=== PATIENT | male | born 1950 | race American Indian/Alaskan Native ===

== ENCOUNTER 2016-07-03 11:34 | Day surgery (SDC) | payer MEDICARE, MEDICAID ==
[2016-04-27 07:19] VITALS: BMI 24.4
[2016-07-03 12:45] VITALS: RESP 18
[2016-07-03] MEDS ORDERED: Lactated Ringer's 1,000 ML IV ONE (14:17)
[2016-07-03] MEDS ORDERED: Propofol 10 mg/ml Inj (20 ML) ONE (14:31)
[2016-07-03] MEDS ORDERED: Oxycodone/Acetaminophen 5/325 mg Tab PO PRN (14:38)
[2016-07-03] MEDS ORDERED: Lactated Ringer's 1,000 ML IV SCH (15:00)
[2016-07-03 15:40] VITALS: TEMP 97.6; O2SAT 100
[2016-07-03 15:44] VITALS: BP 120/78; PULSE 70
--- NOTE | 2016-08-17 09:14 | OP ---
PROCEDURE DATE: 07/03/2016 PREOPERATIVE DIAGNOSES: Urinary retention, voiding dysfunction, history of prostate cancer, currentl y no evidence of disease. COMPLICATIONS: There were none. PROCEDURE: Removal of a cystostomy tube and insertion of a cystostomy tube. SURGEON: Aaron Duran MD This is a very pleasant gentleman who I have known well for quite some time. Back in 07/2008, he underwent a radical retropubic prostatectomy. He has been JOSE RAMON from a prostate can cer standpoint. That was done for prostate, clinically localized prostate cancer. He has been JOSE RAMON s sobeida that point. He has urinary retention subsequent to that, secondary to scar tissue. We changed his cystoscopy. W lucio tried to do it as an outpatient basis, but sometimes patient runs into trouble and needs it done as an inpatient. That is what he is here for today. PROCEDURE ITSELF: We have discussed options. We tried doing it with minimal anesthesia, but the pat ietoyin has many complaints of pain and discomfort. After discussing options, he is here now. The patient was brought to the operating room with anesthesia. Sedation provided by the anesthesiologist. Under sterile technique, we removed the old catheter. We inserted a new catheter without difficulty. We irrigated. We confirmed our positioning. The patient tolerated the procedure without complication. Aaron Duran MD cc: [id number] TT: 08/17/2016 08:55:50 en
== END 2016-07-03 16:32 | disposition home or self-care (01) ==
LOC: C.SDS 11:34
PROVIDERS: ATTEND Urology
DX: R33.9 Retention of urine, unspecified (principal); Z85.46 Personal history of malignant neoplasm of prostate
CPT/HCPCS: 51705; 82948; C2627; J7120

== ENCOUNTER 2016-08-23 12:28 | Day surgery (SDC) | payer MEDICARE, MEDICAID ==
[2016-08-23 12:50] VITALS: BMI 16.7
[2016-08-23 12:54] VITALS: RESP 20; TEMP 97.6; O2SAT 97
[2016-08-23] MEDS ORDERED: Lactated Ringer's 500 ML IV ONE (14:35)
[2016-08-23] MEDS: cefTRIAXone IV 1 gm in Dextros 50 ML IVPB ONE ×2 (14:40→14:43)
[2016-08-23] MEDS ORDERED: Propofol 10 mg/ml Inj (20 ML) ONE (14:40)
[2016-08-23] MEDS ORDERED: Oxycodone/Acetaminophen 5/325 mg Tab PO PRN (15:49)
--- NOTE | 2016-08-23 16:01 | HP ---
REASON FOR ADMISSION: To change a suprapubic catheter. Lately, he has been having a lot of difficul ty where it stops working, faulty catheters and after discussing options with the patient, he is here today for a cystoscope and removal of a Sommer catheter insertion ____. PAST MEDICAL AND SURGICAL HISTORY: As listed on the chart. He has history of prostate cancer, patie nt of Dr. Jung's, he is in a intermediate. SOCIAL HISTORY: He lives in a intermediate. REVIEW OF SYSTEMS: Listed above. As mentioned, he has a feeding tube. There has really been no oth er changes over time. MEDICATIONS: See the chart. PHYSICAL EXAMINATION: GENERAL: He is a well-nourished male, in no apparent distress. VITAL SIGNS: Within normal limits. HEENT: As noted, he is blind. ABDOMEN: His G-tube is in place, feeding tube is in place. Cystostomy tube in good location. DIAGNOSES: Prostate cancer, currently no evidence of disease. In summary, a very pleasant gentleman. He is a 65 years old. He has history of prostate cancer, cur rently no evidence of disease. We have discussed options with the patient. He is here today for a cystoscopy and a change of a cath eter. Of late, we are having some trouble with the catheter. He is here for cystoscopy and change of catheter. Further plans will follow. Aaron Duran MD cc: [id number] TT: 08/23/2016 16:01:20 sn
[2016-08-23 17:04] VITALS: BP 119/63; PULSE 69
--- NOTE | 2016-08-24 06:57 | OP ---
PROCEDURE DATE: 08/23/2016 PREOPERATIVE DIAGNOSES: Urinary retention, voiding dysfunction and nonfunctioning catheter. POSTOPERATIVE DIAGNOSES: Urinary retention, voiding dysfunction and nonfunctioning catheter, bladder debris, but no direct stones. COMPLICATIONS: There were no complications. PROCEDURE: Removal of cystostomy tube, cystoscopy and insertion of a cystostomy tube. FINDINGS: The cystoscopic findings are as follows: Normal bladder mucosa. There is a lot of debris floating around but I do not see any bladder lesion ____. The ____ is within normal limits of havin g a catheter in place. No specific abnormalities. There is bladder debris in the bladder. PROCEDURE ITSELF: After obtaining informed consent, ____, routine monitors placed, timeouts were ca lled to confirm the patient and positioning. The patient needs bladder anesthesia. Sometimes I am a ble to ____, sometimes I am not. He asked that this time we do it in the hospital. So, he is here f or the above procedure. We removed the old catheter under sterile technique, we inserted a cystoscop e, we did under direct vision with the camera so the room is able to see. I inspected carefully around the bladder. I can orient myself within the bladder mucosa by the air b ubbles. I do not see any direct lesions, just a lot of redness, all within normal limits and there i s a lot of debris. We reinserted a new cystostomy tube. I irrigated ____ well. We used a 20 Slovenian ____ a little bit bigger. I am planning actually to dilate him up to 24. The patient tolerated the procedure well without complication. My plan is just to irrigate it. I do not see anything of patricia r significance at this point, so we will need to evaluate further. Aaron Duran MD cc: 429 TT: 08/23/2016 16:11:34 sn
== END 2016-08-23 17:07 | disposition home or self-care (01) ==
LOC: C.SDS 12:28
PROVIDERS: ATTEND Urology
DX: N99.512 Cystostomy malfunction (principal); R33.8 Other retention of urine; N32.89 Other specified disorders of bladder; Z85.46 Personal history of malignant neoplasm of prostate
CPT/HCPCS: 51705; 82948; J0696; J7120

== ENCOUNTER 2016-09-20 11:30 | Day surgery (SDC) | payer MEDICARE, MEDICAID ==
[2016-09-20] MEDS ORDERED: Midazolam 2 MG/2 ML VIAL ONE (12:56)
--- NOTE | 2016-09-25 18:06 | OP ---
PROCEDURE DATE: 09/20/2016 PREOPERATIVE DIAGNOSES: Urinary retention and urethral stricture disease, bladder neck contracture, and history of prostate cancer. POSTOPERATIVE DIAGNOSES: Urinary retention and urethral stricture disease, bladder neck contracture, and history of prostate cancer. SURGEON: Aaron Duran MD. Change of cystostomy tube. COMPLICATIONS: There were no complications. BLOOD LOSS: Less than 10 mL. INDICATIONS: See history and physical for the details. A very pleasant gentleman here for the above procedure. PROCEDURE: After obtaining informed consent, the patient placed on the table, routine monitors place d, timeouts were called. We confirmed the patient and positioning. Once the patient was sedated, we removed the old catheter and inserted a new one without difficulty. The patient tolerated this without any complication. Aaron Duran MD cc: 429 TT: 09/25/2016 18:05:28 jn
--- NOTE | 2016-09-25 20:18 | HP ---
REASON FOR ADMISSION: retention. HISTORY OF PRESENT ILLNESS: This is a very pleasant gentleman I know quite well. He underwent a rad ical retropubic prostatectomy on 08/02/2008. At that time, we cured him of his prostate cancer, is clinically localized, never had a recurrence. He currently has voiding dysfunction. He has a suprapubic catheter. A lot has changed over time wit h the patient. He currently has a feeding tube and he is also blind. He has had no recurrence of disease. Today, he is to change the cystostomy tube. We tried to change it in the office, but sometimes he complains that it hurts too much. He has requested that we broug ht him here today. PAST MEDICAL AND SURGICAL HISTORY: No other changes. SOCIAL H ISTORY: The patient lives in a long term. The patient of Dr. Holley. 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 MEDICATIONS: See the chart. PHYSICAL EXAMINATION: GENERAL: Well-nourished male in no apparent distress. VITAL SIGNS: Within normal limits. ABDOMEN: Overall soft, nontender. Suprapubic site is clean and dry. GENITOURINARY: Normal phallus without discharge. RECTAL: Delayed at this point, but previously no empty prostatic fossa. DIAGNOSES: Urinary retention, voiding dysfunction. We discussed options with the patient, risks, be nefits and alternatives, the plan is as follows. We are going to bring the patient to the OR, antibi otic prophylaxis and bring him with anesthesia sedation and do a cystostomy tube change. Aaron Duran MD cc: 429 TT: 09/25/2016 20:17:53 [email or web address]
== END 2016-09-20 15:00 | disposition home or self-care (01) ==
LOC: C.SDS 11:30
PROVIDERS: ATTEND Urology
DX: Z43.5 Encounter for attention to cystostomy (principal); R33.9 Retention of urine, unspecified; N32.0 Bladder-neck obstruction; Z85.46 Personal history of malignant neoplasm of prostate

== ENCOUNTER 2016-12-04 12:52 | Day surgery (SDC) | payer MEDICARE, MEDICAID ==
[2016-12-04] MEDS ORDERED: Propofol 10 mg/ml Inj (20 ML) ONE (14:49)
[2016-12-04] MEDS ORDERED: Lidocaine Hydrochloride 5 ML INJ ONE (14:57)
[2016-12-04] MEDS ORDERED: cefTRIAXone IV 1 gm in Dextros 0 ML IVPB ONE (15:01)
[2016-12-04] MEDS ORDERED: Oxycodone/Acetaminophen 5/325 mg Tab PO PRN (15:47)
[2016-12-04 18:18] VITALS: BP 118/68; PULSE 68; RESP 20; TEMP 97.7; O2SAT 99
--- NOTE | 2016-12-04 23:11 | OP ---
PROCEDURE DATE: 12/04/2016 PREOPERATIVE DIAGNOSES: Urinary retention, voiding dysfunction, history of prostate cancer, and multiple medical issues, and no evidence of recurrence of prostate cancer. POSTOPERATIVE DIAGNOSES: Urinary retention, voiding dysfunction, history of prostate cancer, and multiple medical issues, and no evidence of recurrence of prostate cancer. PROCEDURE: Removal and insertion of cystostomy tube. SURGEON: ESTIMATED BLOOD LOSS: Less than 10 mL. COMPLICATIONS: None. INDICATIONS: See history and physical. The patient is a very pleasant gentleman, who does not tolerate while in the office, and he requests pain medicine. We brought him in for the above procedure with some anesthesia. DESCRIPTION OF PROCEDURE: The patient was placed on the table. Routine monitors were placed. Time-out was called to identify the correct patient and positioning. Actually, we did this on the stretcher with monitoring. Anesthesia provided, time-out was called to identify the patient. We removed the old catheter and inserted new one. The patient had been given antibiotic prophylaxis. I irrigated the catheter very carefully to make sure it is irrigating well, it has been placed properly, etc. We did all the measurements to length, etc. The patient tolerated without complications. Aaron Duran MD
--- NOTE | 2016-12-05 09:02 | HP ---
UROLOGY ADMISSION HISTORY AND PHYSICAL REASON FOR ADMISSION: Change of a catheter. HISTORY OF PRESENT ILLNESS: Mr. Srivastava is a very pleasant gentleman who does not tolerate a suprapubic catheter without anesthesia. He is here now for a change. I discussed with the patient risks of anesthesia, risks, benefits, treatment, and alternatives and after discussing that at length with the patient, we are planning for the change of cystotomy tube. PAST MEDICAL AND SURGICAL HISTORY: The patient of Dr. Jung. No history of SC or CVA. He has a history of prostate cancer and no recurrence. He is here today for the change. PHYSICAL EXAMINATION: GENERAL: Well-nourished male, in no apparent distress. VITAL SIGNS: Within normal limits. LUNGS: Clear. HEART: S1 and S2. ABDOMEN: Soft and nontender. *------* appreciated. : Normal phallus. His feeing tube is in good location. His cystotomy tube site looks clean and dry. DIAGNOSES: Urinary retention, voiding dysfunction, prostate cancer. PLAN: At this point, we bring the patient to the hospital. We will provide anesthesia. *------* office, but when he goes to the office, he sometimes *------* me, but most often says no. So, at this point, we will bring him into the hospital. We are going to do a suprapubic catheter change and then further plans will follow. We will do it with anesthesia. Risks and benefits were discussed with the patient at length. We will plan to see. Aaron Duran MD
== END 2016-12-04 18:18 | disposition home or self-care (01) ==
LOC: C.SDS 12:52
PROVIDERS: ATTEND Urology
DX: C80.1 Malignant (primary) neoplasm, unspecified (principal); R33.9 Retention of urine, unspecified

== ENCOUNTER 2017-01-14 13:58 | Day surgery (SDC) | payer MEDICARE, MEDICAID ==
[2017-01-10 08:46] VITALS: BMI 26.2
[2017-01-14] MEDS ORDERED: Midazolam 2 MG/2 ML VIAL ONE (16:27)
[2017-01-14] MEDS ORDERED: Lactated Ringer's 1,000 ML IV ONE (16:39)
[2017-01-14] MEDS ORDERED: Oxycodone/Acetaminophen 5/325 mg Tab PO PRN (17:06)
[2017-01-14 17:45] VITALS: TEMP 98
[2017-01-14 17:48] VITALS: PULSE 73; O2SAT 99
[2017-01-14 17:56] VITALS: BP 106/72; RESP 18
--- NOTE | 2017-02-11 06:51 | OP ---
PROCEDURE DATE: NAME OF THE PROCEDURE: Removal of an old cystostomy tube insertion. PREOPERATIVE DIAGNOSES: Urinary retention, voiding dysfunction, history of prostate cancer, currently JOSE RAMON. POSTOPERATIVE DIAGNOSES: Urinary retention, voiding dysfunction, history of prostate cancer, currently JOSE RAMON.. PROCEDURE: Removal and insertion of a cystostomy tube suprapubic catheter. SURGEON: Aaron Duran MD ESTIMATED BLOOD LOSS: Less than 10 mL. COMPLICATIONS: No complications. INDICATIONS: See history and physical for further details. This is a very pleasant gentleman here for procedure. DESCRIPTION OF PROCEDURE: We obtained an informed consent. The patient placed on the table. Routine monitors were placed. Time-out was called. We confirmed the patient positioning. After doing so, we then subsequently removed the old catheter and inserted a new catheter without difficulty via the cystostomy tube. The patient tolerated the procedure well without complications. Aaron Duran MD
--- NOTE | 2017-02-11 07:04 | HP ---
UROLOGY ADMISSION HISTORY AND PHYSICAL REASON FOR ADMISSION: Change of catheter. HISTORY OF PRESENT ILLNESS: Mr. Srivastava is a very pleasant gentleman who has a history of prostate cancer, currently JOSE RAMON, has urinary retention, voiding dysfunction, and we are here to change the cystostomy tube. We are not able to remove off the tube. We have tried very often, but he is not okay with that. PAST MEDICAL HISTORY: No other changes. PAST SURGICAL HISTORY: No other changes. REVIEW OF SYSTEMS: As listed above. MEDICATIONS: See the chart. PHYSICAL EXAMINATION: GENERAL: A well-nourished male in no apparent distress. VITAL SIGNS: Within normal limits . LUNGS: Clear. ABDOMEN: Soft. The G tube is in good location. The cystoscopy tube is in good location. : Normal phallus without discharge. DIAGNOSES: Urinary retention and voiding dysfunction. PLAN: We are going to change the cystoscopy tube, and then we will give the patient anesthesia for this because he is not able to tolerate it without that. Again, I am going to encourage the patient about the risks, benefits, and treatment alternatives and we are going to try do it in the office . Aaron Duran MD
== END 2017-01-14 18:30 | disposition home or self-care (01) ==
LOC: C.SDS 13:58
PROVIDERS: ATTEND Urology
DX: R33.9 Retention of urine, unspecified (principal)
CPT/HCPCS: 51705; 82948; J7120

== ENCOUNTER 2017-02-18 13:12 | Day surgery (SDC) | payer MEDICARE, MEDICAID ==
[2017-02-12 08:36] VITALS: BMI 16.6
[2017-02-18 13:24] VITALS: RESP 18; O2SAT 100
[2017-02-18] MEDS ORDERED: Oxycodone/Acetaminophen 5/325 mg Tab PO PRN (14:38)
[2017-02-18] MEDS ORDERED: Propofol 10 mg/ml Inj (20 ML) ONE (14:45)
[2017-02-18] MEDS ORDERED: Sodium Chloride 0.9% 500 ML IV ONE (14:50)
[2017-02-18 15:49] VITALS: PULSE 60; TEMP 97
[2017-02-18 16:37] VITALS: BP 125/69
--- NOTE | 2017-02-25 09:49 | OP ---
UROLOGY OPERATIVE REPORT PROCEDURE DATE: 02/18/2017 PREOPERATIVE DIAGNOSES: Urinary retention, voiding dysfunction, history of prostate cancer, currently no evidence of disease. POSTOPERATIVE DIAGNOSES: Urinary retention, voiding dysfunction, history of prostate cancer, currently no evidence of disease. PROCEDURE: Removal of cystostomy tube, insertion of cystostomy tube. COMPLICATIONS: There were no complications. INDICATIONS: See history and physical for further details. This is a very pleasant gentleman who just cannot tolerate this while in the office. I keep trying periodically. He will allow me, but on a routine basis, he does not. I have discussed the options with the patient and he is now here for the above procedure. DESCRIPTION OF PROCEDURE: After obtaining informed consent, the patient was placed on the table. Routine monitors were placed. Time-out was called. We confirmed the patient positioning, etc. Anesthesia and sedation provided. We prepped the area in sterile fashion. We removed the old catheter and in sterile fashion we inserted a new cystostomy tube. We irrigated to make sure it is in place. Overall, the patient tolerated the procedure well without complication. Aaron Duran MD
== END 2017-02-18 17:32 | disposition home or self-care (01) ==
LOC: C.SDS 13:12
PROVIDERS: ATTEND Urology
DX: R33.9 Retention of urine, unspecified (principal)
CPT/HCPCS: 51705; 82948; J7040

== ENCOUNTER 2017-04-02 11:13 | Day surgery (SDC) | payer MEDICARE, MEDICAID ==
[2017-02-12 08:36] VITALS: BMI 16.6
[2017-04-02] MEDS ORDERED: Lactated Ringer's 500 ML IV ONE (16:54)
[2017-04-02] MEDS ORDERED: Oxycodone/Acetaminophen 5/325 mg Tab PO PRN (17:03)
[2017-04-02] MEDS ORDERED: HYDROmorphone 0.5 mg/0.5 ml ISec IVP PRN (17:18)
[2017-04-02 18:16] VITALS: BP 110/71; PULSE 87; RESP 17; TEMP 97.4; O2SAT 95
--- NOTE | 2017-04-30 07:46 | OP ---
PROCEDURE DATE: 04/02/2017 PREOPERATIVE DIAGNOSES: Urinary retention, voiding dysfunction, prostate cancer. POSTOPERATIVE DIAGNOSES: Urinary retention, voiding dysfunction, prostate cancer. PROCEDURE: Removal and insertion of cystotomy tube. COMPLICATIONS: There were no complications. INDICATIONS: See the history and physical for further details. A very pleasant gentleman, who I know quite well, on 08/02/2008 he underwent a radical retropubic prostatectomy. He has been JOSE RAMON since then. No evidence of cancer. We have monitored him. Since then, he has had multiple medical changes. He currently has an indwelling cystostomy tube; he also has a feeding tube. He is also legally blind. From urology standpoint, he reports that he is not able to change the catheter in the office although sometimes we are able to when he had emergencies, but for the most part we had been changing it in the hospital and for now. ESTIMATED BLOOD LOSS: 10 mL. DRAIN: Suprapubic tube. DESCRIPTION OF THE PROCEDURE: After obtaining informed consent, the patient was placed on the table. Routine monitor was placed. Time-out was called to confirm the patient and positioning, etc. Under the sterile technique, we removed the old catheter and inserted a new catheter. The patient tolerated the procedure well without complication. We also irrigated the catheter; the catheter drains well. Aaron Duran MD
== END 2017-04-02 19:00 | disposition home or self-care (01) ==
LOC: C.SDS 11:13
PROVIDERS: ATTEND Urology
DX: R33.9 Retention of urine, unspecified (principal); C61 Malignant neoplasm of prostate
CPT/HCPCS: 51102; 82948; J7120

== ENCOUNTER 2017-05-27 13:33 | Day surgery (SDC) | payer MEDICARE, MEDICAID ==
[2017-02-12 08:36] VITALS: BMI 16.6
[2017-05-27 14:23] VITALS: BP 102/60; PULSE 69; RESP 18; TEMP 97.9; O2SAT 98
[2017-05-27] MEDS ORDERED: Oxycodone/Acetaminophen 5/325 mg Tab PO PRN (14:38)
[2017-05-27] MEDS ORDERED: Oxycodone/Acetaminophen 5/325 mg Tab ONE (14:44)
== END 2017-05-27 18:19 ==
LOC: C.SDS 13:33
PROVIDERS: ATTEND Urology
DX: R33.9 Retention of urine, unspecified (principal); Z53.9 Procedure and treatment not carried out, unspecified reason

== ENCOUNTER 2017-08-12 07:52 | Day surgery (SDC) | payer MEDICARE ==
[2017-08-12] MEDS ORDERED: Propofol 10 mg/ml Inj (20 ML) ONE (07:53)
[2017-08-12] MEDS ORDERED: Lidocaine Hydrochloride 5 ML INJ ONE (07:55)
[2017-08-12 08:29] VITALS: BMI 16.4
[2017-08-12] MEDS ORDERED: Lactated Ringer's 1,000 ML IV ONE (09:05)
[2017-08-12 09:47] VITALS: O2SAT 100
[2017-08-12 10:38] VITALS: RESP 18
[2017-08-12 11:04] VITALS: BP 127/72; PULSE 84; TEMP 97.5
== END 2017-08-12 10:41 ==
LOC: C.ENDO 07:52
PROVIDERS: ATTEND Internal Medicine
DX: R63.4 Abnormal weight loss (principal); R10.84 Generalized abdominal pain; Z93.1 Gastrostomy status; K59.09 Other constipation; K64.8 Other hemorrhoids; K29.70 Gastritis, unspecified, without bleeding
CPT/HCPCS: 43239; 45378; 82948; 88305; 88313; 88342; J2704; J7120

== ENCOUNTER 2017-09-12 09:13 | Day surgery (SDC) | payer MEDICARE, MEDICAID ==
[2017-09-12] MEDS ORDERED: HYDROmorphone 0.5 mg/0.5 ml ISec IVP PRN (11:20)
[2017-09-12] MEDS ORDERED: ceFAZolin 1 gm in NS 1 GM/100 ML BAG IVPB ONE (13:25)
[2017-09-12] MEDS ORDERED: Oxycodone/Acetaminophen 5/325 mg Tab PO PRN (13:25)
[2017-09-12 16:49] VITALS: BP 111/60; PULSE 72; RESP 18; TEMP 97; O2SAT 95
--- NOTE | 2017-09-13 00:53 | HP ---
REASON FOR ADMISSION: For changing cath. HISTORY OF PRESENT ILLNESS: A very pleasant gentleman who I know quite well. On 08/02/2008, he underwent radical retropubic prostatectomy. He is currently JOSE RAMON from prostate cancer, that is done for prostate cancer. Meanwhile, though, he has voiding dysfunction and he has suprapubic catheter. He is also blind. He has his feeding tube as well as a gastrostomy tube. He is here just for the change. We tried changing in the office sometimes, but it has been just too difficult, he has so much pain and discomfort. The patient is . PAST MEDICAL HISTORY: No other changes. PAST SURGICAL HISTORY: No other changes. REVIEW OF SYSTEMS: As above. Of an interesting note, the patient states they do not give him Percocet anymore for pain. He asked me to investigate why. So, I am going to send him now back to retirement. His medical doctor his Dr. Zeny Jung. PHYSICAL EXAMINATION: GENERAL: A well-nourished thin male, in no apparent distress. He looks the same as usual. VITAL SIGNS: Within normal limits including the chart. LUNGS: Clear. HEART: Normal S1 and S2. ABDOMEN: Overall soft. The cystoscopy tube is in good location. Gastrostomy tube in good location. RECTAL: Deferred. LABORATORY DATA: Pending. DIAGNOSES: Urinary retention. Voiding dysfunction. History of prostate cancer, currently neuroendocrine differentiation. PLAN: As follows: 1. Periodically, recheck a PSA. 2. We are changing the cystostomy tube. We discussed options, locations, etc., he is here now for further plans. 3. The plan is as follows: The patient for a change of cystoscopy tube . Aaron Duran MD
--- NOTE | 2017-09-13 07:54 | OP ---
PROCEDURE DATE: 09/12/2017 PREOPERATIVE DIAGNOSES: Urinary retention, voiding dysfunction, history of prostate cancer and no evidence of disease currently. POSTOPERATIVE DIAGNOSES: Urinary retention, voiding dysfunction, history of prostate cancer and no evidence of disease currently. PROCEDURE: Removal and insertion of a cystostomy tube. SURGEON: Aaron Duran MD TYPE OF ANESTHESIA: Sedation. ESTIMATED BLOOD LOSS: Less than 10 mL. COMPLICATIONS: None. At the termination of the procedure, the patient has a new cystostomy tube, it is irrigating well. INDICATIONS: See the history and physical for further details. This is a very pleasant gentleman who we have tried doing it in the office; he always complains "it hurts too much, it hurts too much." After discussing various options over time, we have been changing it reliably, and then when we do that this way, the patient does not usually run into any catheter difficulties. DESCRIPTION OF PROCEDURE: After obtaining informed consent, the patient was placed on the table, routine monitors were placed, time-out was called to confirm the patient and positioning. We removed the old catheter and we actually scrubbed the abdomen. It consisted of lot of encrustations around the catheter. We scrubbed the abdomen with the Hibiclens and then we sprayed extra Betadine. With sterile incision kit, we inserted new Sommer catheter via the cystostomy tube and irrigated it copiously. The patient tolerated the procedure well without complications. Aaron Duran MD
== END 2017-09-12 16:45 | disposition home or self-care (01) ==
LOC: C.SDS 09:13
PROVIDERS: ATTEND Urology
DX: Z46.6 Encounter for fitting and adjustment of urinary device (principal); R33.9 Retention of urine, unspecified; R31.29 Other microscopic hematuria; Z85.46 Personal history of malignant neoplasm of prostate; Z93.1 Gastrostomy status

== ENCOUNTER 2018-01-16 10:55 | Day surgery (SDC) | payer MEDICARE, MEDICAID ==
[2017-11-11 06:55] VITALS: BMI 16.4
[2018-01-16] MEDS ORDERED: cefTRIAXone 1 gm 1 GM/100 ML BAG IVPB ONE (12:56)
[2018-01-16] MEDS ORDERED: Oxycodone/Acetaminophen 5/325 mg Tab PO PRN (13:08)
[2018-01-16] MEDS ORDERED: Propofol 10 mg/ml Inj (20 ML) ONE (13:22)
[2018-01-16] MEDS ORDERED: Lactated Ringer's 1,000 ML IV SCH (13:45)
[2018-01-16 14:30] VITALS: O2SAT 100
[2018-01-16 15:12] VITALS: RESP 16; TEMP 97.5
[2018-01-16 16:08] VITALS: BP 123/70; PULSE 98
--- NOTE | 2018-01-17 06:21 | OP ---
PROCEDURE DATE: 01/16/2018 PREOPERATIVE DIAGNOSES: Urinary retention, voiding dysfunction, bladder stones, bladder debris, dysfunctional catheters and prostate cancer, history of currently no evidence of cancer. POSTOPERATIVE DIAGNOSES: Urinary retention, voiding dysfunction, bladder stones, bladder debris, dysfunctional catheters and prostate cancer, history of currently no evidence of cancer. PROCEDURE: Removal and insertion of cystoscopy tube with irrigation of debris. COMPLICATIONS: There were no complications. INDICATIONS: See the history and physical for further details. A very pleasant gentleman here for the above procedure. We discussed options. DESCRIPTION OF PROCEDURE: After obtaining informed consent, the patient was placed on the table. Routine monitors were placed. Time-out was called to confirm the patient and positioning. Antibiotic prophylaxis was used. We removed the old catheter. Without too much difficulty we inserted new one. If you look closely at the catheter there is a like debris. We irrigated the catheter copiously, it irrigates well. We actually used a 20 Indonesian to make it a little bit bigger than the previous 18, we took out an 18 and put in 20 without difficulty it went in. The patient tolerated the procedure without complication. Aaron Duran MD
--- NOTE | 2018-01-17 06:39 | HP ---
REASON FOR ADMISSION: Changing the suprapubic catheter. HISTORY OF PRESENT ILLNESS: A very pleasant patient on 08/02/2008 underwent radical retropubic prostatectomy for prostate cancer. He has not been any recent stent. From urology standpoint, he also has urinary retention now. With the voiding dysfunction, he is blind. He also has a feeding tube, so we have been managing with his suprapubic catheter and we are changing that. Of note, see all the previously dictated notes in this regard. The patient complains of we do it in the office. Sometimes, we are able to get away in the office and in the hospital, sometimes he states now. At this point, we had trouble. Last time, he had some stones built up and we wanted to do a cystoscopy litholapexy; however, he does not have medical clearance. I have to discuss the various options with the patient where here today we are going to just change the cystostomy tube. PAST MEDICAL HISTORY: As listed in the chart. PAST SURGICAL HISTORY: As listed in the chart. As mentioned above, no other change. The patient . SOCIAL HISTORY: Socially, he lives in a [facility]. His brother actually used to work here, [employer]. Other than unremarkable social history. REVIEW OF SYSTEMS: As above. No weight loss, chest pain or shortness of breath. PHYSICAL EXAMINATION: GENERAL: A well-developed, well-nourished male, in no apparent distress. VITAL SIGNS: Within normal limits. HEENT: Sclerae nonicteric and not injected. No cervical or axillary adenopathy. LUNGS: Clear. HEART: Normal S1, S2. ABDOMEN: Overall soft, nontender. No flank masses appreciated. PELVIC: Suprapubic catheter is in place of working. DIAGNOSES: 1. Prostate cancer, currently NAD. 2. Voiding dysfunction. 3. Urinary retention. 4. Bladder stones. PLAN: As follows. Today, we are going to just change the cystostomy tube, which we could do on the middle of anesthesia and then if an when he can get medical clearance, we will plan for that too as well. We will discuss further plan back after. Plan as follows. Antibiotic prophylaxis. Change of the catheter. Aaron Duran MD [facility] # [id number]
== END 2018-01-16 16:00 | disposition home or self-care (01) ==
LOC: C.SDS 10:55
PROVIDERS: ATTEND Urology
DX: R33.9 Retention of urine, unspecified (principal); C61 Malignant neoplasm of prostate
CPT/HCPCS: 51705; 82948; J0696

== ENCOUNTER 2018-04-22 12:11 | Day surgery (SDC) | payer MEDICARE, MEDICAID ==
[2018-03-13 11:59] VITALS: BMI 16.7
[2018-04-22] MEDS ORDERED: Propofol 10 mg/ml Inj (20 ML) ONE (14:33)
[2018-04-22] MEDS ORDERED: cefTRIAXone 1 gm 1 GM/100 ML BAG IVPB ONE (14:37)
[2018-04-22] MEDS ORDERED: Oxycodone/Acetaminophen 5/325 mg Tab PO PRN (14:46)
[2018-04-22] MEDS ORDERED: Lidocaine 2% Jelly (Uro-Jet) ONE (14:53)
[2018-04-22] MEDS ORDERED: Dextrose 50% SYRINGE Inj (50 ml) ONE (15:06)
[2018-04-22] MEDS ORDERED: HYDROmorphone 0.5 mg/0.5 ml ISec IVP PRN (15:20)
[2018-04-22] MEDS ORDERED: HYDROmorphone 0.5 mg/0.5 ml ISec ONE (15:33)
[2018-04-22 18:19] VITALS: BP 120/78; PULSE 63; RESP 20; TEMP 97.8; O2SAT 98
--- NOTE | 2018-04-23 01:28 | OP ---
PROCEDURE DATE: 04/22/2018 UROLOGY OPERATIVE NOTE PREOPERATIVE DIAGNOSES: Bladder stones, urinary retention, voiding dysfunction, history of prostate cancer, currently no evidence of disease. POSTOPERATIVE DIAGNOSES: Bladder stones, urinary retention, voiding dysfunction, history of prostate cancer, currently no evidence of disease, and there are no stones, but there is bladder debris. PROCEDURES: Cystoscopy, irrigation of debris, and insertion of a cystostomy tube. SURGEON: Aaron Duran MD COMPLICATIONS: There were no complications. FINDINGS: The bladder mucosa has normal redness. No lesions. There is lot of debris noted. We irrigated it out nicely. We inserted a new Sommer catheter. There were no complications. DESCRIPTION OF PROCEDURE: After obtaining informed consent, the patient was placed on the table. Routine monitors were placed on the table. Time-out was called. We removed the old Sommer catheter without difficulty. The patient was prepped in a sterile fashion. We introduced a 22 cystoscope via the cystostomy tube, inspected carefully. I took multiple pictures and left in the chart. There is debris, but there are no stones. It looks like even yellow crystals, but there are definitely no stones . We irrigated those out. The urine was clear. We inserted a new catheter, irrigated this copiously as well. Dry sterile dressing was applied. The patient tolerated the procedure without complications. NAME OF THE PROCEDURE: Removal of the cystostomy tube, insertion of a cystostomy tube and cystoscopy and irrigation of debris. Aaron Duran MD
--- NOTE | 2018-04-23 02:18 | HP ---
UROLOGY ADMISSION HISTORY AND PHYSICAL REASON FOR ADMISSION: Change of catheter. HISTORY OF PRESENT ILLNESS: Mr. Srivastava is a very pleasant gentleman who has a history of prostate cancer on 08/02/2017, underwent a radical prostatectomy. Since then he has been JOSE RAMON, no evidence of disease or recurrence of prostate cancer; however, he does have voiding dysfunction. At this point, he is blind. He has a feeding tube in. He has a cystostomy tube and we just changed this periodically. This was an easier management plan for the patient. Recently, he was found to have "bladder stones." He is here today for cysto and cystolitholapaxy. See the below plan. PAST MEDICAL AND SURGICAL HISTORY: Otherwise unchanged. He is a patient of Dr. Jung as he lives in senior care. SOCIAL HISTORY: Otherwise unremarkable. He is living in a senior care. MEDICATIONS: See the chart. There are about 50 medications that he is on. See the chart for further details. I signed them off in the med reconciliation page. PHYSICAL EXAMINATION: GENERAL: A thin male in no apparent distress. VITAL SIGNS: Within normal limits and noted in the chart. LUNGS: Clear. ABDOMEN: Relatively soft. The feeding tube and cystostomy tube are noted. GENITOURINARY: Normal male phallus without discharge. No testicular mass. RECTAL: Exam deferred. LABORATORY DATA: See chart. DIAGNOSES: History of prostate cancer, currently JOSE RAMON, no evidence of recurrent disease. He has urinary retention, voiding dysfunction and we will be changing the cystostomy tube The etiology of this is not perfectly clear and the study does not reveal bladder neck contracture. But we have been managing in this way and he has been stable. As long as we change the catheter on regular basis, he does not run trouble. Recently, he had had some catheter trouble and was told he had bladder stones, so we brought him in today to OR. The plan is to perform cystoscopy which we are going to do through the suprapubic region and then laser any stone if we see them. We gave the patient antibiotic prophylaxis. We did the procedure, see the operative note separately. We could not find stones. We did see some debris. We irrigated out the debris a lot, see the operative note, but there are no stones. Aaron Duran MD [facility] # [id number]
== END 2018-04-22 17:30 | disposition home or self-care (01) ==
LOC: C.SDS 12:11
PROVIDERS: ATTEND Urology
DX: R33.9 Retention of urine, unspecified (principal); N21.0 Calculus in bladder; Z85.46 Personal history of malignant neoplasm of prostate
CPT/HCPCS: 52000; 82948; J0696; J1170

== ENCOUNTER 2018-05-31 07:19 | Observation (INO) | payer MEDICARE, MEDICAID ==
[2018-05-31 07:20] VITALS: BMI 16.7
[2018-05-31 08:10] LABS: BASO # 0.1 K/uL (0.0-0.2); EOS # 0.3 K/uL (0.0-0.7); EOS % 4.6 % (0.0-4.0); HEMOGLOBIN 15.2 g/dL (12.0-18.0); LYMPH # 1.5 K/uL (1.0-4.3); LYMPH % 23.8 % (20.0-40.0); MEAN CELL VOLUME 95.7 fL (80.0-94.0); MEAN CORPUSCULAR HEMOGLOBIN 31.7 pg (27.0-31.0); MEAN CORPUSCULAR HGB CONC 33.1 g/dL (33.0-37.0); MEAN PLATELET VOLUME 7.4 fL (7.2-11.7); MONO # 0.6 K/uL (0.0-0.8); MONO % 9.5 % (0.0-10.0); NEUT # 3.8 K/uL (1.8-7.0); NEUT % 61.1 % (50.0-75.0); NRBC % 0.1 % (0.0-2.0); RBC 4.79 Mil/uL (4.40-5.90); RED CELL DISTRIBUTION WIDTH 13.1 % (11.5-14.5); WHITE BLOOD COUNT 6.2 K/uL (4.8-10.8)
[2018-05-31 08:24] LABS: ALB/GLOB RATIO 1.2 (1.0-2.1); ALBUMIN 4.3 g/dL (3.5-5.0); ALT/SGPT 16 U/L (21-72); AST/SGOT 18 U/L (17-59); BLOOD UREA NITROGEN 14 mg/dL (9-20); CALCIUM 8.8 mg/dl (8.6-10.4); GFR NON-AFRICAN AMERICAN > 60
--- NOTE | 2018-05-31 08:26 | C.PDOC ---
History Of Present Illness 67 year old male presents to the ED from a rehabilitation facility for urinary retention. The patient has a suprapubic robertson for neurogenic bladder, independently he has a history of prostate cancer radical resection as per Dr. Mateo Duran. No other medical complaints at this time. He denies fever, chills, and any other associated symptoms. Time Seen by Provider: 05/31/18 07:31 Chief Complaint (Nursing): Male Genitourinary History Per: Patient History/Exam Limitations: no limitations Onset/Duration Of Symptoms: Days Current Symptoms Are (Timing): Still Present Associated Symptoms: denies: Fever, Chills Recent travel outside of the [place]: No Past Medical History Reviewed: Historical Data, Nursing Documentation, Vital Signs Vital Signs: Last Vital Signs Temp 97.4 F L 05/31/18 07:20 Pulse 69 05/31/18 07:20 Resp 18 05/31/18 07:20 BP 157/92 H 05/31/18 07:20 Pulse Ox 98 05/31/18 07:20 - Medical History PMH: Anemia, Anxiety, Asthma, Benign Prostatic Hyperplasia (PROSTATE CA), COPD, Diabetes, Diverticulitis, Emphysema, Hiatal Hernia, HTN, Hypercholesterolemia, Hyperlipidemia, Malignancy (prostate ca, thorasic/esophageal), Chronic Kidney Disease (SUPRAPUBIC CATHETER), TIA Denies: Colonic Polyps Surgical History: Endoscopy - [facility] Procedures CHANGE DRAINAGE DEVICE IN BLADDER, EXTERNAL APPROACH (03/16/18) CYSTOGRAM NEC (11/09/13) CYSTOSCOPY NEC (06/07/14) ENTERAL INFUSION OF CONCENTRATED NUT. SUBSTANCES (11/17/12) ESOPHAGOGASTRODUODENOSCOPY [EGD] W/CLOSED BIOPSY (06/01/13) INJECT/INFUSE NEC (03/14/14) INSERT INDWELLING CATH (04/12/14) NEBULIZER THERAPY (11/17/12) OTHER ENDOSCOPY OF SM INTEST (08/12/13) OTHER SKIN & SUBQ I D (03/14/14) PARENTERAL INFUSION OF CONCENTRATED NUT. SUBSTANCE (09/25/12) REPLACE CYSTOSTOMY TUBE (08/23/14) REPLACE GASTROSTOMY TUBE (08/12/13) REPLACE INDWELLING CATH (07/26/14) TU BLADDER CLEARANCE (03/08/13) TU DESTRUC BLADD LES NEC (07/05/14) URETERAL CATHETERIZATION (10/19/13) Family History: States: Hypertension - Social History Hx Tobacco Use: No Hx Alcohol Use: Yes (Ex) Hx Substance Use: No - Immunization History Hx Tetanus Toxoid Vaccination: No Hx Influenza Vaccination: No Hx Pneumococcal Vaccination: No Review Of Systems Except As Marked, All Systems Reviewed And Found Negative. Constitutional: Negative for: Fever, Chills Physical Exam - Physical Exam Appears: Non-toxic, No Acute Distress, Other (blind. ) Skin: Warm, Dry Head: Atraumatic, Normacephalic Eye(s): bilateral: Normal Inspection Oral Mucosa: Moist Neck: Normal ROM, Supple Chest: Symmetrical, No Deformity Cardiovascular: Rhythm Regular, No Murmur Respiratory: Normal Breath Sounds, No Rales, No Rhonchi, No Wheezing Gastrointestinal/Abdominal: Soft, No Tenderness, Distention, Other ((+) leaking around the suprapubic tube. (+) PEG tube. ) Male Genital: Normal Inspection Extremity: Bilateral: Atraumatic, Normal Color And Temperature Neurological/Psych: Oriented x3, Normal Speech, Normal Cognition ED Course And Treatment - Laboratory Results Result Diagrams: 05/31/18 08:06 05/31/18 08:06 Lab Results: Total Bilirubin 0.5 mg/dL (0.2-1.3) 05/31/18 08:06 AST 18 U/L (17-59) 05/31/18 08:06 ALT 16 U/L (21-72) L D 05/31/18 08:06 Alkaline Phosphatase 113 U/L (38-126) 05/31/18 08:06 Total Protein 7.8 g/dL (6.3-8.3) 05/31/18 08:06 Albumin 4.3 g/dL (3.5-5.0) 05/31/18 08:06 Globulin 3.6 gm/dL (2.2-3.9) 05/31/18 08:06 Albumin/Globulin Ratio 1.2 (1.0-2.1) 05/31/18 08:06 O2 Sat by Pulse Oximetry: 98 (RA) Pulse Ox Interpretation: Normal Medical Decision Making Medical Decision Making: Initial plan: -Blood sent. -Urinalysis. Progress/Update: 7:54am : Discussed case with Dr. Mateo Duran who gave following alternatives; change suprabuic pubic robertson tube or admit to Dr. Saavedra where he will conduct the procedure himself. Disposition Discussed With DrKelsy: Mateo Duran Counseled Patient/Family Regarding: Studies Performed - Disposition Disposition: HOSPITALIZED Disposition Time: 08:25 Condition: GUARDED Forms: [facility] (Turkish) - Clinical Impression Clinical Impression: Urinary retention - Scribe Statement The provider has reviewed the documentation as recorded by the Scribe (Toshia Huff) Provider Attestation: All medical record entries made by the Scribe were at my direction and personally dictated by me. I have reviewed the chart and agree that the record accurately reflects my personal performance of the history, physical exam, medical decision making, and the department course for this patient. I have also personally directed, reviewed, and agree with the discharge instructions and disposition. Decision To Admit - Pt Status Changed To: Hospital Disposition Of: Observation - . Bed Request Type: Regular Patient Diagnosis: Urinary retention
[2018-05-31] MEDS: Baclofen 5 mg Tab NG SCH (19:31)
[2018-05-31] MEDS ORDERED: Home Med 1 UNIT (Melatonin [Melatonin] 5 MG) GT SCH (22:00)
[2018-06-01] MEDS: Acetaminophen 650mg/20.3ml solution UD GT PRN ×4 (01:58→21:56)
--- NOTE | 2018-06-01 08:04 | HP ---
The patient was seen and examined at the bedside on 05/31/2018. I am doing history and physical for 05/31/2018. The patient was seen in the emergency room. CHIEF COMPLAINT: Urinary retention, Sommer is not draining. HISTORY OF PRESENT ILLNESS: Mr. Robin Srivastava is a 67-year-old male, resident of [facility], has urinary retention. The patient has suprapubic Sommer catheter for neurogenic bladder. he has the history of prostate cancer, radical resection was done by Dr. Aaron Duran. The patient has a history of cancer of throat and neck, having PEG tube, getting medications with the PEG tube. The patient is blind bilaterally. No fever. No chills. No hematuria or hematochezia. PAST MEDICAL HISTORY: As above, anemia, anxiety, asthma, BPH, prostate cancer, COPD, diabetes mellitus, diverticulitis, emphysema, hiatal hernia, hypertension, hypercholesterolemia, hyperlipidemia, prostate cancer, cancer of throat and tongue, suprapubic catheter, TIA. FAMILY HISTORY: Father and mother noncontributory. HABITS: No smoking. History of alcohol abuse, but not now. Substance abuse: None. REVIEW OF SYSTEMS: The patient was seen and examined at the bedside in the emergency room. The patient is bilaterally blind. He is not very good historian, but no fever, no chills. No hematoma or hematochezia. No headache. No dizziness. PHYSICAL EXAMINATION: VITAL SIGNS: Temperature 97.4, pulse 59, respiratory rate 18, blood pressure 150/80. HEENT: Head: Normocephalic and atraumatic. Eyes: PERRLA. Extraocular muscles are intact. Conjunctivae clear. Nose: Patent. NECK: Supple. No carotid bruit, JVD, or thyromegaly. CHEST: Bilaterally symmetrical. HEART: S1 and S2 positive. LUNGS: Clear to auscultation. ABDOMEN: Soft. Bowel sounds are positive. No organomegaly. EXTREMITIES: No edema. No cyanosis. NEUROLOGIC: The patient is awake and alert. Follow simple commands. LABORATORY DATA: White blood cells 6.3, hemoglobin 15.2, hematocrit 45.8, platelets 182. Sodium 137, potassium 4, BUN 14, creatinine 0.6, glucose 183. ASSESSMENT AND PLAN: Mr. 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 Dr. Duran is the urologist on the case. PLAN: Continue the catheter tomorrow. Repeat labs. GI and DVT prophylaxis. We will follow up. Zeny Jung MD [facility]
[2018-06-01 08:47] LABS: HEMOGLOBIN 15.8 g/dL (12.0-18.0); MEAN CELL VOLUME 96.4 fL (80.0-94.0); MEAN CORPUSCULAR HEMOGLOBIN 31.4 pg (27.0-31.0); MEAN CORPUSCULAR HGB CONC 32.6 g/dL (33.0-37.0); RBC 5.04 Mil/uL (4.40-5.90); RED CELL DISTRIBUTION WIDTH 13.3 % (11.5-14.5); WHITE BLOOD COUNT 6.8 K/uL (4.8-10.8)
[2018-06-01 09:06] LABS: BLOOD UREA NITROGEN 14 mg/dL (9-20); CALCIUM 9.3 mg/dl (8.6-10.4); GFR NON-AFRICAN AMERICAN > 60
[2018-06-01] MEDS: Baclofen 5 mg Tab NG SCH ×2 (09:35→17:43)
[2018-06-01 20:27] LABS: IRON 84 ug/dL (49-181)
[2018-06-01 20:32] LABS: TOTAL IRON BINDING CAPACITY 260 ug/dL (250-450)
[2018-06-01 20:35] LABS: % IRON SATURATION 32 (20-55)
[2018-06-01 21:26] LABS: FOLATE 6.4 ng/mL
[2018-06-02] MEDS: Baclofen 5 mg Tab NG SCH ×2 (10:09→17:43)
--- NOTE | 2018-06-02 13:34 | PN ---
DATE: 06/01/2018 SUBJECTIVE: The patient was seen and examined at bedside on 06/01/2018. The patient is looking comfortable. No fever, no chills, no hematuria, no hematochezia, no headache, no dizziness, no chest pain, and no palpitation. PHYSICAL EXAMINATION: VITAL SIGNS: Temperature 97.6, pulse 75, blood pressure 120/77, and respiratory rate 20. HEENT: Head: Normocephalic and atraumatic. Eyes: Closed. Nose: Patent. Mucous membranes are moist. NECK: Supple. No carotid bruits. No JVD or thyromegaly. CHEST: Bilaterally symmetrical. HEART: S1 and S2 are positive. LUNGS: Clear to auscultation. ABDOMEN: Soft. Bowel sounds present. No organomegaly. EXTREMITIES: No edema, no cyanosis. NEUROLOGIC: The patient is awake and alert, obeying simple orders. MEDICATIONS: Aspirin, Bactroban ointment, Celebrex, Baclofen, Lopressor, and Tylenol. LABORATORY DATA: White blood cell 6.8, hemoglobin 16.8, hematocrit 48.6, and platelets 216. Glucose 88. Triglycerides 186, LDL 130. ASSESSMENT AND PLAN: Mr. Robin Srivastava is a 67-year-old male with hyperglycemia, hypercholesterolemia, hypertriglyceridemia, bilaterally blind, history of prostate cancer, history of throat cancer, having a G tube, anemia of chronic disease, anxiety, asthma, chronic obstructive pulmonary disease, diabetes mellitus, diverticulitis, emphysema, and hiatal hernia, and has a suprapubic catheter. Dr. Duran is handling. He is planning to change the catheter. Gastrointestinal and deep vein thrombosis prophylaxis. Repeat labs. We will follow up. Zeny Jung MD
--- NOTE | 2018-06-03 09:00 | PN ---
DATE: 06/02/2018 SUBJECTIVE: The patient is a 67-year-old male. The patient was seen and examined on the bedside on 06/02/2018. Looking comfortable. No fever. No chills. No hematuria or hematochezia. No swelling of the legs. No chest pain. No palpitations. No headache. No dizziness. PHYSICAL EXAMINATION: VITAL SIGNS: Temperature 98.2, pulse 79, blood pressure 150/80, respiratory rate 20. HEENT: Head: Normocephalic, atraumatic. Eyes: PERRLA. Extraocular muscles intact. Conjunctivae clear. Nose patent. Mucous membranes moist. NECK: Supple. No carotid bruit. No JVD or thyromegaly. CHEST: Bilaterally symmetrical. HEART: S1, S2 positive. LUNGS: Clear to auscultation. ABDOMEN: Soft. Bowel sounds present. No organomegaly. EXTREMITIES: No edema. No cyanosis. NEUROLOGIC: The patient is awake, alert. Moving all four extremities. No focal deficits. MEDICATIONS: Aspirin, Celebrex, Baclofen, Lopressor, Tylenol. LABORATORY DATA: We do not have recent labs today, but I reviewed the old labs. ASSESSMENT AND PLAN: a 67-year-old male with hyperglycemia, hypercholesterolemia, hypertriglyceridemia, dysphagia, having a PEG tube, history of prostate cancer, has a suprapubic catheter, it is time to change. Waiting for Dr. Aaron Duran to change the catheter. The patient has history of throat and tongue cancer and dysphagia, has a percutaneous endoscopic gastrostomy tube, chronic obstructive pulmonary disease, patient is bilaterally blind, asthma, diabetes mellitus. Gastrointestinal and deep venous thrombosis prophylaxis. Repeat labs. Waiting for Dr. Duran. We will follow up. Zeny Jung MD [facility]
[2018-06-03] MEDS: Baclofen 5 mg Tab NG SCH ×2 (12:11→17:42)
[2018-06-03] MEDS: Acetaminophen 650mg/20.3ml solution UD GT PRN (12:13)
[2018-06-03] MEDS ORDERED: Dextrose 5%/0.9% NS 1,000 ML IV ONE ×2 (12:58→16:06)
--- NOTE | 2018-06-03 13:00 | CON ---
DATE: 06/01/2018 UROLOGY CONSULTATION NOTE HISTORY OF PRESENT ILLNESS: Mr. Srivastava is a very pleasant gentleman well known to me, who had urinary retention, voiding dysfunction, and is here now because the suprapubic catheter is not working well. We changed it on a regular basis. The patient was scheduled to come to have it changed last week. But for various reasons apparently was not arranged for transportation, it is unclear, but either way the catheter is now not working and he is in the hospital and he is leaking on the side of the catheter. See the plans below because the patient will not let me change it at the bedside here. PAST MEDICAL AND SURGICAL HISTORY: All listed on the chart. He is under the care of Dr. Zeny Jung, who is his general medical doctor. Otherwise, unchanged since any previous admission. REVIEW OF SYSTEMS: As listed above. Otherwise, noncontributory. PHYSICAL EXAMINATION: GENERAL: He is currently resting comfortably. Again, he is noted to be blind. His feeding tube is in place, his cystostomy tube is in good location, but not draining well. GENITOURINARY: Normal male phallus without discharge. RECTAL: Deferred now, but previous exam . DIAGNOSES: 1. 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 He had a radical retropubic prostatectomy on 08/02/2008 This is uncomplicated since then. We followed the patient closely . 2. Urinary retention. He currently will not allow me to change his Sommer at the bedside. PLAN: He will have to remain in the hospital and then we will change it in the OR with some anesthesia. Further plans will follow. Further plans, just for clarity, the patient can eat today. He can eat at 6 a.m. and then after that n.p.o. and he will be brought to the OR tomorrow. Aaron Duran MD
[2018-06-03] MEDS ORDERED: Lidocaine/Epinephrine 1% 1:100000 10 ML IJ ONE (15:43)
[2018-06-03] MEDS ORDERED: Midazolam 2 MG/2 ML VIAL ONE (15:44)
[2018-06-03] MEDS ORDERED: Propofol 10 mg/ml Inj (20 ML) ONE (15:44)
[2018-06-03] MEDS: cefTRIAXone 1 gm 1 GM/100 ML BAG IVPB ONE ×2 (15:55→16:06)
[2018-06-03 17:16] VITALS: RESP 20; TEMP 97.1
[2018-06-03] MEDS: Oxycodone/Acetaminophen 5/325 mg Tab PO PRN (17:39)
--- NOTE | 2018-06-03 23:39 | PCM.URO ---
Urology Progress Note - Subjective Other: new spt inserted. pt clear for discharge from gu standpoint - Objective Lab Results Last 24 Hours: Laboratory Results - last 24 hr 06/03/18 06/03/18 06/03/18 06:13 12:01 15:07 POC Glucose (mg/dL) 87 76 122 H 06/03/18 21:53 POC Glucose (mg/dL) 98 Intake & Output: Intake & Output 06/03/18 06/03/18 06/04/18 06:59 18:59 06:59 Intake Total 500 285 Output Total 450 350 100 Balance 50 -65 -100 Intake: IV 225 Oral 500 Other 60 Output: Urine 450 350 100 Condom 450 300 Suprapubic 0 100 Other: # Bowel Movements 1 Vital Signs: Vital Signs - 24 hr 06/03/18 06/03/18 06/03/18 08:00 16:06 16:20 Temperature 97.4 F L 96.9 F L Pulse Rate 83 62 61 Respiratory 20 9 L 9 L Rate Blood Pressure 136/90 89/62 L 97/67 L O2 Sat by Pulse 98 99 99 Oximetry 06/03/18 06/03/18 06/03/18 16:35 16:50 17:15 Temperature 97.9 F 97.1 F L Pulse Rate 60 65 63 Respiratory 10 L 12 20 Rate Blood Pressure 114/76 115/76 127/79 O2 Sat by Pulse 99 100 96 Oximetry 06/03/18 17:34 Temperature Pulse Rate Respiratory Rate Blood Pressure O2 Sat by Pulse 96 Oximetry
--- NOTE | 2018-06-04 01:02 | PN ---
DATE: 06/03/2018 SUBJECTIVE: The patient was seen and examined at the bedside on 06/03/2018, looking comfortable, status post suprapubic Sommer change. Had dinner. No fever. No chills. No hematuria or hematochezia. No swelling of the legs. No chest pain. No palpitations. No headache. No dizziness. PHYSICAL EXAMINATION: VITAL SIGNS: Temperature 97.1, pulse 63, blood pressure 127/79, pulse oximetry 20. HEENT: Head normocephalic and atraumatic. Eyes, PERRLA. Extraocular movements are intact. Conjunctivae clear. Nose patent. Mucous membrane moist. NECK: Supple. No carotid bruits. No JVD or thyromegaly. CHEST: Bilaterally symmetrical. HEART: S1 and S2 are positive. LUNGS: Clear to auscultation. ABDOMEN: Soft. Bowel sounds present. No organomegaly. EXTREMITIES: No edema, no cyanosis. NEUROLOGICAL: The patient is awake and alert. Follows simple commands. MEDICATIONS: Aspirin, Bactroban, Celebrex, dextrose, Lopressor, Percocet, Tylenol. LABORATORY DATA: We do not have labs today, but I reviewed the old labs. ASSESSMENT AND PLAN: Mr. Robin Srivastava is a 67-year-old male with hyperglycemia, has urinary retention problem, has a suprapubic catheter. Today Dr. Aaron Duran changed suprapubic tube. History of prostate cancer. History of cancer of tongue and throat. Bilaterally blind. Dysphagia, had checked percutaneous endoscopic gastrostomy tube. Patient is bedridden. Electrolyte imbalance adjusted. Hypercholesterolemia. Gastrointestinal and deep venous thrombosis prophylaxis. Repeat laboratories. We will follow up. Zeny Jung MD
[2018-06-04 01:49] VITALS: BP 120/75; PULSE 71; O2SAT 97
[2018-06-04] MEDS: Baclofen 5 mg Tab NG SCH (10:44)
[2018-06-04] MEDS: Oxycodone/Acetaminophen 5/325 mg Tab PO PRN (11:59)
--- NOTE | 2018-06-08 05:19 | DS ---
The patient was seen and examined at bedside on 06/04/2018. CHIEF COMPLAINT: Urinary retention, changing of Sommer catheter. HISTORY OF PRESENT ILLNESS: Mr. Robin Srivastava is a 67-year-old male, resident of [facility], has urinary retention, history of prostate cancer, having suprapubic catheter. It was blocked and clogged. Then, the patient was brought to [facility], seen by Dr. Aaron Duran. No fever. No chills. No headache. No dizziness. No chest pain. No palpitation. In OR, suprapubic catheter was changed. The patient was sent back to [facility] at 06/04/2018. PAST MEDICAL HISTORY: As above, anemia, anxiety, asthma, BPH, prostate cancer, COPD, diabetes mellitus, diverticulitis, emphysema, hiatal hernia, hypertension, hypercholesterolemia, prostate cancer, cancer of throat and tongue. FAMILY HISTORY: Father and mother noncontributory. HABITS: Never smoked, no drugs, no ethanol per the patient. REVIEW OF SYSTEMS: The patient was seen and examined at bedside, looking comfortable. No fever. No chills. No hematuria or hematochezia. No headache or dizziness. No chest pain. No palpitation. PHYSICAL EXAMINATION: VITAL SIGNS: Temperature 97.1, pulse 71, blood pressure 120/75, and respiratory rate 20. HEENT: Head is normocephalic and atraumatic. Eyes PERRLA. Extraocular muscles intact. Conjunctivae clear. Nose patent. Mucous membranes moist. NECK: Supple. No carotid bruits. No JVD or thyromegaly. CHEST: Bilaterally symmetrical. HEART: S1 and S2 positive. LUNGS: Clear to auscultation. ABDOMEN: Soft. Nontender. No organomegaly. EXTREMITIES: No edema. No cyanosis. NEUROLOGIC: The patient is awake and alert. Follows simple commands. LABORATORY DATA: White blood cell 6.8, hemoglobin 15.8, hematocrit 48.6, and platelets 216. Glucose 110, sodium 138, potassium 3.9, BUN 48, creatinine 0.6. Triglycerides 186 and LDL 130. ASSESSMENT AND PLAN: Mr. Robin Srivastava is a 67-year-old male with hypercholesterolemia, hypertriglyceridemia, anemia, history of prostate cancer, history of cancer of the throat and tongue, has suprapubic catheter. It was blocked. The patient was sent to [facility] to change that and Dr. Aaron Duran did that, history of chronic obstructive pulmonary disease, asthma, deconditioned, bilaterally blind, bedridden, having percutaneous endoscopic gastrostomy tube. Repeat laboratories. Pain meds given. Send back to [facility] after changing the Sommer catheter. Zeny Jung MD
--- NOTE | 2018-06-09 13:42 | OP ---
PROCEDURE DATE: 06/03/2018 PREOPERATIVE DIAGNOSES: Urinary retention, voiding dysfunction, history of prostate cancer currently no acute distress, urinary retention, bladder neck contracture, possible history of bladder neck contracture. POSTOPERATIVE DIAGNOSES: Urinary retention, voiding dysfunction, history of prostate cancer currently no acute distress, urinary retention, bladder neck contracture, possible history of bladder neck contracture. PROCEDURE: Removal of a cystostomy tube, insertion of a cystostomy tube under mild sedation. COMPLICATIONS: There were no complications. ESTIMATED BLOOD LOSS: 10 mL. FINDINGS: We were able to remove and insert a new catheter. INDICATIONS: See history and physical and consultation. This is a very pleasant, but extremely difficult patient that he needs anesthesia just to change the suprapubic catheter. He has now been here for a couple of days, would not let me change it at the bedside. I initially saw the patient on Saturday. He would let me do it that on Saturday, that is on 06/01/2018. He would not let me to do it at the bed. On 06/02/2018, we had made arrangements and then come . Today is 06/03/2018 and we here for the above procedure. DESCRIPTION OF PROCEDURE: After discussing various options . The patient was placed on the table. Routine monitors were placed. A time-out was called to confirm the patient and positioning. We removed the old catheter and inserted a new one without difficulty under sterile technique, irrigated copiously, irrigates well. The patient tolerated without complication. ADDENDUM: Patient is now cleared for discharge. We will discuss further options and we will make sure we have followup. In the meantime, I am also working on with the correction because, see the consultation note. The patient himself was scheduled originally and then there was some cancellation. We have to discuss with the correction whether the cancellation happened from them for the patient. Patient is very pleasant, but sometimes he just wants to rest and not come to the hospital, but then w need more active followup though the catheter has not stopped working. Again on findings today, all that he is back in retention, the catheter was encrusted. We were able to change it without too much difficulty. The patient tolerated the procedure well and he drained a lot of urine. Next followup will be in four weeks henceforth. Aaron Duran MD [facility] # [id number]
== END 2018-06-04 16:38 ==
LOC: C.ER 07:19 → C.9E 08:27 → C.5S 20:11
PROVIDERS: ADMIT Internal Medicine; ATTEND Internal Medicine
DX: T83.090A Other mechanical complication of cystostomy catheter, initial encounter (principal); R33.9 Retention of urine, unspecified; N31.9 Neuromuscular dysfunction of bladder, unspecified; H54.7 Unspecified visual loss; E11.22 Type 2 diabetes mellitus with diabetic chronic kidney disease; I12.9 Hypertensive chronic kidney disease with stage 1 through stage 4 chronic kidney disease, or unspecified chronic kidney disease; N18.9 Chronic kidney disease, unspecified; E78.2 Mixed hyperlipidemia; J43.9 Emphysema, unspecified; Z85.46 Personal history of malignant neoplasm of prostate; Z90.79 Acquired absence of other genital organ(s); Z93.1 Gastrostomy status; Z86.73 Personal history of transient ischemic attack (TIA), and cerebral infarction without residual deficits; Z85.810 Personal history of malignant neoplasm of tongue; Z85.819 Personal history of malignant neoplasm of unspecified site of lip, oral cavity, and pharynx; Y83.1 Surgical operation with implant of artificial internal device as the cause of abnormal reaction of the patient, or of later complication, without mention of misadventure at the time of the procedure
CPT/HCPCS: 36415; 51705; 80048; 80053; 80061; 82607; 82746; 82948; 83036; 83540; 83550; 84443; 85025; 85027; 99285; G0378; J0696; J2250; J2704; J3010; J7042

== ENCOUNTER 2018-08-26 16:15 | Emergency (ER) | payer MEDICARE, MEDICAID ==
[2018-08-26 16:24] VITALS: BMI 19.1
--- NOTE | 2018-08-26 17:53 | C.PDOC ---
History Of Present Illness 67 y/o male presents to the ED, [facility] for suprapubic catheter change. Patient has a PMHx of BPH and prostate cancer, and follows with urologist Dr. Mateo Duran. Currently he denies any fever or other complaints. Time Seen by Provider: 08/26/18 16:23 Chief Complaint (Nursing): Male Genitourinary History Per: Patient History/Exam Limitations: no limitations Onset/Duration Of Symptoms: Hrs Current Symptoms Are (Timing): Still Present Additional History Per: [facility] Past Medical History Reviewed: Historical Data, Nursing Documentation, Vital Signs Vital Signs: Last Vital Signs Temp 97.5 F L 08/26/18 16:24 Pulse 72 08/26/18 16:23 Resp 18 08/26/18 16:23 BP 105/75 08/26/18 16:23 Pulse Ox 99 08/26/18 16:23 - Medical History PMH: Anemia, Anxiety, Asthma, Benign Prostatic Hyperplasia (PROSTATE CA), COPD, Diabetes, Diverticulitis, Emphysema, Hiatal Hernia, HTN, Hypercholesterolemia, Hyperlipidemia, Malignancy (prostate ca, thorasic/esophageal), Chronic Kidney Disease (SUPRAPUBIC CATHETER), TIA Denies: Colonic Polyps Surgical History: Endoscopy - [facility] Procedures CHANGE DRAINAGE DEVICE IN BLADDER, EXTERNAL APPROACH (03/16/18) CYSTOGRAM NEC (11/09/13) CYSTOSCOPY NEC (06/07/14) ENTERAL INFUSION OF CONCENTRATED NUT. SUBSTANCES (11/17/12) ESOPHAGOGASTRODUODENOSCOPY [EGD] W/CLOSED BIOPSY (06/01/13) INJECT/INFUSE NEC (03/14/14) INSERT INDWELLING CATH (04/12/14) NEBULIZER THERAPY (11/17/12) OTHER ENDOSCOPY OF SM INTEST (08/12/13) OTHER SKIN & SUBQ I D (03/14/14) PARENTERAL INFUSION OF CONCENTRATED NUT. SUBSTANCE (09/25/12) REPLACE CYSTOSTOMY TUBE (08/23/14) REPLACE GASTROSTOMY TUBE (08/12/13) REPLACE INDWELLING CATH (07/26/14) TU BLADDER CLEARANCE (03/08/13) TU DESTRUC BLADD LES NEC (07/05/14) URETERAL CATHETERIZATION (10/19/13) Family History: States: Hypertension - Social History Hx Tobacco Use: No Hx Alcohol Use: Yes (Ex) Hx Substance Use: No - Immunization History Hx Tetanus Toxoid Vaccination: No Hx Influenza Vaccination: No Hx Pneumococcal Vaccination: No Review Of Systems Except As Marked, All Systems Reviewed And Found Negative. Constitutional: Negative for: Fever, Chills Gastrointestinal: Negative for: Abdominal Pain Genitourinary: Positive for: Other (Catheter dysfunction) Skin: Negative for: Rash Physical Exam - Physical Exam Appears: Non-toxic, No Acute Distress, Chronically Ill Skin: Warm, Dry, No Rash Head: Atraumatic, Normacephalic Eye(s): bilateral: Normal Inspection, PERRL, EOMI Oral Mucosa: Moist Neck: Normal ROM Chest: Symmetrical Cardiovascular: Rhythm Regular, No Murmur Respiratory: Normal Breath Sounds, No Accessory Muscle Use Gastrointestinal/Abdominal: Soft, No Tenderness, No Distention, No Guarding, Other (Suprapubic catheter in place) Extremity: Bilateral: Atraumatic, Normal Color And Temperature Neurological/Psych: Oriented x3 ED Course And Treatment O2 Sat by Pulse Oximetry: 99 (on RA) Pulse Ox Interpretation: Normal Progress Note: Spoke with Dr. Ramila Duran, states he will come to bedside in 30 minutes and change the catheter. came to ED and changed suprapubic catheter without complications. Patient is ready to be d/c back to SNF. Disposition - Disposition Disposition: TRANSF TO SNF Disposition Time: 18:02 Condition: IMPROVED Forms: [facility] ([place]) - Clinical Impression Clinical Impression: Encounter for suprapubic catheter care - PA / PUBLIC RECORDS RESEARCHER / Resident Statement MD/DO has reviewed & agrees with the documentation as recorded. - Scribe Statement The provider has reviewed the documentation as recorded by the Scribramila Wing All medical record entries made by the Luzibramila were at my direction and personally dictated by me. I have reviewed the chart and agree that the record accurately reflects my personal performance of the history, physical exam, medical decision making, and the department course for this patient. I have also personally directed, reviewed, and agree with the discharge instructions and disposition.
[2018-08-26 19:43] VITALS: BP 122/78; PULSE 68; RESP 16; TEMP 97.9; O2SAT 98
--- NOTE | 2018-09-03 02:10 | OP ---
PROCEDURE DATE: 08/26/2018 PREOPERATIVE DIAGNOSES: Urinary retention, faulty catheter, failed catheter, nonfunctioning suprapubic catheter. POSTOPERATIVE DIAGNOSES: Urinary retention, faulty catheter, failed catheter, nonfunctioning suprapubic catheter. PROCEDURE: Removal and insertion of a new suprapubic catheter. SURGEON: Aaron Duran MD COMPLICATIONS: No complications. BLOOD LOSS: Less than 5 mL. INDICATIONS: See history and physical and consultation. The patient is here because his catheter is not working well. We have tried making arrangements in the office, but in the office the patient showed up an hour and half early. He is not a patient that we can keep in the office and the transportation, therefore, brought him over here to the emergency room. See my consult note. DESCRIPTION OF PROCEDURE: At the bedside, under sterile technique, I discussed the options with the patient. Instead of waiting for the OR and the patient being n.p.o., etc, we brought him straight here, gently and carefully we removed the old catheter. Under sterile technique, we inserted a new Sommer catheter. We irrigated, it did well. The patient tolerated without complications. ADDENDUM: He needs to repeat cysto because of the recurrence of these things. Aaron Duran MD
--- NOTE | 2018-09-03 06:18 | CON ---
DATE: 08/26/2018 HISTORY OF PRESENT ILLNESS: Mr. Srivastava is a very pleasant gentleman, here for urology consult for urinary retention. A very pleasant gentleman. Lately, he has been having trouble with his catheter. I know the patient for quite some years. On 08/02/2008, he underwent a radical retropubic prostatectomy. Since that time, multiple medical have developed. This was about 10 years ago at this point. He has, in the ED, no evidence of disease of cancer, but what he does have is voiding dysfunction, urinary retention, and he lives with a suprapubic that we changed. He also is now with a feeding tube. He also is legally blind. He is currently in the hospital because the suprapubic is not draining well. PAST MEDICAL AND SURGICAL HISTORY: As listed. Patient of . REVIEW OF SYSTEMS: He lives in a half-way. SOCIAL HISTORY: Essentially unremarkable. PHYSICAL EXAMINATION: GENERAL: A well-nourished male, in no apparent distress. VITAL SIGNS: Within normal limits . ABDOMEN: Soft, nontender. No flank masses appreciated. GENITOURINARY: Normal male phallus without discharge. I do want to mention the suprapubic site. It looks clean. The catheter looks like it is okay, but it is not draining well. Everything else is intact, feeding tube, etc. DIAGNOSES: Urinary retention, voiding dysfunction, and failed suprapubic catheter. PLAN: See below. Today, we are going to see the separately dictated procedure note. I removed the old catheter and inserted a new one under sterile technique. That is going to be our plan for now. The patient tolerated it without complication. Aaron Duran MD
== END 2018-08-26 20:08 ==
LOC: C.ER 16:15
DX: T83.010A Breakdown (mechanical) of cystostomy catheter, initial encounter (principal); R33.9 Retention of urine, unspecified; Y84.9 Medical procedure, unspecified as the cause of abnormal reaction of the patient, or of later complication, without mention of misadventure at the time of the procedure

== ENCOUNTER 2018-09-16 10:33 | Day surgery (SDC) | payer MEDICARE, MEDICAID ==
[2018-09-16 10:49] VITALS: BMI 18.8
[2018-09-16] MEDS ORDERED: cefTRIAXone 1 gm 0 GM/0 ML BAG IVPB ONE (13:17)
[2018-09-16] MEDS ORDERED: Lidocaine Hydrochloride 0 ML INJ ONE (13:17)
[2018-09-16] MEDS ORDERED: Oxycodone/Acetaminophen 5/325 mg Tab PO PRN (14:42)
[2018-09-16 15:04] VITALS: BP 150/96; PULSE 100; RESP 18; TEMP 97.8; O2SAT 100
--- NOTE | 2018-09-17 01:52 | HP ---
REASON FOR ADMISSION: Change of SP tube. HISTORY OF PRESENT ILLNESS: A very pleasant gentleman with prostate cancer T1c, underwent a radical retropubic prostatectomy. Since then, he has been JOSE RAMON, never had a recurrence. He now has a suprapubic catheter for voiding dysfunction and retention. He also has many changes over life. He happens to also be blind legally. He also has a feeding tube. He lives in a skilled nursing. Otherwise, no major changes lately. PAST MEDICAL AND SURGICAL HISTORY: As listed in the chart. The patient has a doctor. REVIEW OF SYSTEMS: As listed above. He lives in a skilled nursing. MEDICATIONS: See the chart. ALLERGIES: PHYSICAL EXAMINATION: GENERAL: This is a well-nourished male, in no apparent distress. VITAL SIGNS: Noted in the chart. LUNGS: Clear. appreciated. ABDOMEN: Overall soft. The suprapubic catheter is in good place. The feeding tube looks like it is in good location. (I do want to mention the patient is with pain) Remainder of the exam is otherwise unremarkable. LABORATORY DATA: See chart. DIAGNOSES: Urinary retention, voiding dysfunction, history of prostate cancer, currently neuroendocrine differentiation. PLAN: From the Urology standpoint, at this point, we changed the suprapubic catheter. Also, the patient wants to do it in the hospital with anesthesia. We discussed the risks, benefits, and treatment alternatives. Today, we are going to do that. Next time, we will try to get him to come to the office. We will prefer to do in the office with no anesthesia. I tried to discuss this at length with the patient. From Urology standpoint, the patient is here today. He preferred today here. He actually was in a different hospital on Saturday, but the timing was unable to be worked up regarding the change of the catheter. We discussed it with the patient many times. Further plans will follow. Aaron Duran MD
--- NOTE | 2018-09-17 06:39 | OP ---
PROCEDURE DATE: 09/16/2018 UROLOGY OPERATIVE NOTE PREOPERATIVE DIAGNOSES: Urinary retention, voiding dysfunction, history of prostate cancer, bladder neck contracture, possible urethral stricture disease. POSTOPERATIVE DIAGNOSES: Urinary retention, voiding dysfunction, history of prostate cancer, bladder neck contracture, possible urethral stricture disease. PROCEDURE: Removal and insertion of a suprapubic catheter through the same size. SURGEON: Aaron Duran MD COMPLICATIONS: There were no complications. ESTIMATED BLOOD LOSS: Less than 10 mL. DESCRIPTION OF PROCEDURE: We provided risk, benefits, treatment alternatives. We consented the patient. The patient was brought to the OR. Time-out was called, and confirmed the patient and positioning. We removed the old catheter, inserted a new one. We irrigated it, made sure it is in properly as the old catheter is not working well. We put out about 100 mL immediately urine. We irrigated it well. The patient tolerated the procedure without complications. This gentleman was brought to the recovery room, brought to the same day unit in stable condition. Aaron Duran MD
== END 2018-09-16 16:50 | disposition home or self-care (01) ==
LOC: C.SDS 10:33
PROVIDERS: ATTEND Urology
DX: R33.9 Retention of urine, unspecified (principal); C61 Malignant neoplasm of prostate; N32.0 Bladder-neck obstruction; Z85.46 Personal history of malignant neoplasm of prostate